=== PATIENT | male | born 1950 | race Caucasian/White ===

== ENCOUNTER 2017-11-08 09:49 | Inpatient (IN) ==
[2017-11-08] MEDS ORDERED: SODIUM CHLORIDE 0.9% 500 ML IV STA (11:24)
[2017-11-08] MEDS ORDERED: ALBUTEROL/IPRATROPIUM 3 ML NEB RESP TX STA (11:24)
[2017-11-08] MEDS ORDERED: PANTOPRAZOLE 40 MG VIAL IV STA (11:24)
[2017-11-08] MEDS ORDERED: ONDANSETRON 4 MG/2 ML VIAL IV STA (11:24)
[2017-11-08 11:31] LABS: Eosinophils # 0.5 10*3/uL (0.0-0.87); Eosinophils % 1.5 % (0.00-10.9); Hematocrit 19.7 VOL% (42.0-52.0); Hemoglobin 6.6 GM/DL (14.0-18.0); Lymphocytes # 19.9 10*3/uL (1.4-4.0); Mean Corpuscular HGB Conc 33.5 GM/DL (32-36); Mean Corpuscular Hemoglobin 30 PG (27-34); Monocytes # 10.8 10*3/uL (0.11-0.8); Monocytes % 34.2 % (1.7-12.7); Neutrophils # 0.4 10*3/uL (1.4-7.4); Neutrophils % 1.3 % (38.7-73.9); Red Blood Count 2.19 MC/CUMM (3.8-5.5); Red Cell Distribution Width 17.8 % (9.3-17.3); White Blood Count 31.6 T/CUMM (4-12)
[2017-11-08 11:35] LABS: PT Patient Result 10.7 SECS
[2017-11-08 11:40] LABS: Platelet Count 14 T/CUMM (130-400)
[2017-11-08 11:47] LABS: Alanine Aminotransferase 47 U/L (16-61); Albumin 3.1 G/DL (3.4-5.0); Alkaline Phosphatase 103 U/L (45-117); Aspartate Amino Transferase 33 U/L (0-37); Bilirubin,Total < 0.39 MG/DL (0.2-1.0); Blood Urea Nitrogen 24 MG/DL (7-18); Calcium 8.1 MG/DL (8.5-10.1); Glucose 92 MG/DL (74-106); Osmolality,Calculated 280.5 MOS/KG (273-304); Potassium 4.4 MMOL/L (3.5-5.1); Sodium 139 MMOL/L (136-145); Total Protein 6.3 G/DL (6.4-8.3); Troponin I Only < 0.015 NG/ML (0.00-0.045)
[2017-11-08 12:01] LABS: Atypical Lymphocytes Moderate; Band Neutrophils 1 % (0-10); Hypochromasia 1+; Lymphocytes 84 % (20-55); Microcytosis 1+; Nucleated Red Blood Cells 1 (0-5); Segmented Neutrophils 1 % (50-85); Total Cells Counted 100
[2017-11-08 12:04] LABS: Platelet Estimate Decreased
[2017-11-08] MEDS ORDERED: SODIUM CHLORIDE 0.9% 1,000 ML IV PRN (12:31)
[2017-11-08] MEDS ORDERED: ONDANSETRON 4 MG/2 ML VIAL ONE (12:34)
[2017-11-08] MEDS ORDERED: PANTOPRAZOLE 40 MG VIAL IV ONE (12:34)
[2017-11-08] MEDS ORDERED: SODIUM CHLORIDE 0.9% 2,650 ML IV ONE (12:35)
[2017-11-08] MEDS ORDERED: THEOPHYLLINE ER 200 MG TABLET PO SCH (13:00)
[2017-11-08] MEDS ORDERED: PIPERACILLIN/TAZOBACTAM 3,375 MG in SODIUM CHLORIDE 0.9% 100 ML IV SCH (13:00)
[2017-11-08 13:01] LABS: Alanine Aminotransferase 49 U/L (16-61); Albumin 3.1 G/DL (3.4-5.0); Alkaline Phosphatase 95 U/L (45-117); Aspartate Amino Transferase 25 U/L (0-37); Bilirubin,Direct < 0.100 MG/DL (0.0-0.20); Bilirubin,Indirect 0.3 MG/DL (0.0-1.0); Bilirubin,Total < 0.39 MG/DL (0.2-1.0); Total Protein 6.3 G/DL (6.4-8.3)
[2017-11-08 13:14] LABS: Risk Ratio 5.71; VLDL CHOLESTEROL 42.6 MG/DL
[2017-11-08 13:22] LABS: Apearance,Urine CLEAR (Clear); Bilirubin,Urine Negative (Negative); Blood, Urine Negative (Negative); Glucose,Urine (UA) Negative (Negative); Ketones,Urine Negative (Negative); Mucus,Urine Occasional /LPF (Occasional); Nitrite,Urine Negative (Negative); Protein,Urine Negative; RBC,Urine 1 /HPF (0-4); Urine Color Yellow (Yellow); Urine Specific Gravity 1.015 (1.001-1.035); Urine Urobilinogen < 2.0 EU/DL (0.2-1.0)
[2017-11-08] MEDS ORDERED: PIPERACILLIN/TAZOBACTAM 3,375 MG VIAL IV ONE (13:25)
[2017-11-08 13:26] LABS: ABG Base Excess -1.4 MMOL/L (-2.5-2.5); ABG HCO3 23.2 MMOL/L (20-26); ABG Oxygen Saturation 90.2 % (95-100); ABG PCO2 36.1 MM HG (35-48); ABG PH 7.411 (7.35-7.45); ABG PO2 65.7 MM HG (80-95)
[2017-11-08 14:06] LABS: Hepatitis A Ab IgM Quant 0.06 Index; Hepatitis A Ab IgM Result Negative (Negative); Hepatitis B Core IgM Quant 0.21 Index; Hepatitis B Core IgM Result Negative (Negative); Hepatitis B Surface Ag Quant 0.11 Index; Hepatitis B Surface Ag Result Negative (Negative); Hepatitis C Virus Ab Quant 0.04 Index; Hepatitis C Virus Ab Result Negative (Negative)
[2017-11-08] MEDS ORDERED: ALBUTEROL 2.5 MG/3 ML NEB RESP TX PRN (14:58)
[2017-11-08] MEDS: NICOTINE 21 MG/24 HR PATCH TRANSDERM SCH (18:20)
[2017-11-08] MEDS: methylPREDNISolone SOD SUC 40 MG/1 ML VIAL IV SCH ×2 (18:20→22:03)
[2017-11-08] MEDS: VANCOMYCIN INJ 1,250 MG in SODIUM CHLORIDE 0.9% 250 ML IV SCH (18:22)
[2017-11-08 18:53] LABS: Basophils # 0.1 10*3/uL (0.0-0.2); Basophils % 0.4 % (0.0-0.8); Eosinophils # 0.5 10*3/uL (0.0-0.87); Eosinophils % 1.6 % (0.00-10.9); Lymphocytes % 67.5 % (21.2-54.2); Mean Corpuscular HGB Conc 33.1 GM/DL (32-36); Mean Corpuscular Hemoglobin 31 PG (27-34); Mean Corpuscular Volume 93.3 FL (87-102); Mean Platelet Volume 9.8 FL (9.6-12.0); Monocytes # 9.7 10*3/uL (0.11-0.8); Monocytes % 29.8 % (1.7-12.7); NRBC # 0.02 10*3/uL; Neutrophils # 0.2 10*3/uL (1.4-7.4); Neutrophils % 0.7 % (38.7-73.9); Platelet Count 47 T/CUMM (130-400); Red Blood Count 1.65 MC/CUMM (3.8-5.5); White Blood Count 32.6 T/CUMM (4-12)
[2017-11-08] MEDS ORDERED: ALBUTEROL/IPRATROPIUM 3 ML NEB RESP TX PRN (18:55)
[2017-11-08 18:57] LABS: Hematocrit 15.4 VOL% (42.0-52.0); Hemoglobin 5.1 GM/DL (14.0-18.0)
[2017-11-08] MEDS: ALBUTEROL/IPRATROPIUM 3 ML NEB RESP TX SCH (18:57)
[2017-11-08 19:08] LABS: Fibrinogen Quant Value 347 MG% (200-400); Partial Thromboplastin Time 24.7 SECS (0-40)
[2017-11-08 19:16] LABS: % Iron Saturation 94.2 % (18-50)
[2017-11-08 19:29] LABS: Folate 6.9 NG/ML (5.4-24.0)
[2017-11-08 20:38] LABS: Atypical Lymphocytes Moderate; Lymphocytes 87 % (20-55); Platelet Estimate Decreased; Segmented Neutrophils 2 % (50-85); Total Cells Counted 100
[2017-11-08] MEDS: CITALOPRAM 20 MG TABLET PO SCH (21:49)
[2017-11-08] MEDS: LEVOFLOXACIN INJ 500 MG in PREMIX 1 EACH IV SCH (21:50)
[2017-11-08] MEDS: PANTOPRAZOLE 40 MG VIAL IV SCH (21:50)
[2017-11-09] MEDS: ALBUTEROL/IPRATROPIUM 3 ML NEB RESP TX SCH ×4 (00:59→20:45)
[2017-11-09 05:50] LABS: Eosinophils # 0.1 10*3/uL (0.0-0.87); Eosinophils % 0.6 % (0.00-10.9); Hematocrit 22.5 VOL% (42.0-52.0); Immature Granulocytes % 1.7 %; Immature Granulocytes Absolute 0.21 #; Lymphocytes # 7.7 10*3/uL (1.4-4.0); Lymphocytes % 61.8 % (21.2-54.2); Mean Corpuscular HGB Conc 34.2 GM/DL (32-36); Mean Corpuscular Hemoglobin 30 PG (27-34); Mean Corpuscular Volume 88.9 FL (87-102); Monocytes # 4.1 10*3/uL (0.11-0.8); Monocytes % 32.8 % (1.7-12.7); Neutrophils # 0.4 10*3/uL (1.4-7.4); Neutrophils % 3.1 % (38.7-73.9); Red Cell Distribution Width 16.3 % (9.3-17.3)
[2017-11-09 05:52] LABS: Red Blood Count 2.53 MC/CUMM (3.8-5.5); White Blood Count 12.5 T/CUMM (4-12)
[2017-11-09 05:53] LABS: Hemoglobin 7.7 GM/DL (14.0-18.0); Platelet Count 78 T/CUMM (130-400)
[2017-11-09 06:16] LABS: Atypical Lymphocytes Moderate; Band Neutrophils 3 % (0-10); Eosinophils 1 % (0-10); Hypochromasia 1+; Lymphocytes 79 % (20-55); Microcytosis Slight; Platelet Estimate Decreased; Segmented Neutrophils 1 % (50-85); Total Cells Counted 100
[2017-11-09 06:18] LABS: Albumin 3.2 G/DL (3.4-5.0); Bilirubin,Total 1.1 MG/DL (0.2-1.0); Calcium 7.8 MG/DL (8.5-10.1); Osmolality,Calculated 282.4 MOS/KG (273-304); Potassium 4.2 MMOL/L (3.5-5.1); Total Protein 6.3 G/DL (6.4-8.3)
[2017-11-09] MEDS: methylPREDNISolone SOD SUC 40 MG/1 ML VIAL IV SCH ×3 (06:30→23:07)
[2017-11-09] MEDS: VANCOMYCIN INJ 1,250 MG in SODIUM CHLORIDE 0.9% 250 ML IV SCH ×2 (06:30→18:11)
[2017-11-09] MEDS: THEOPHYLLINE 400 MG PO SCH ×2 (06:32→17:23)
[2017-11-09] MEDS: ALBUTEROL 0.4 MG/ML 30 ML/BOTTLE PO SCH ×5 (08:01→21:20)
[2017-11-09 08:54] LABS: ABG Base Excess -3.5 MMOL/L (-2.5-2.5); ABG HCO3 21.4 MMOL/L (20-26); ABG Oxygen Saturation 95.4 % (95-100); ABG PH 7.423 (7.35-7.45); ABG PO2 75.2 MM HG (80-95); ABG TCO2 18.9 MMOL/L (23-27); Allen Test Positive
[2017-11-09] MEDS: TAMSULOSIN 0.4 MG CAPSULE PO SCH (08:58)
[2017-11-09] MEDS: PANTOPRAZOLE 40 MG VIAL IV SCH ×2 (08:58→21:21)
[2017-11-09] MEDS: CETIRIZINE 10 MG TABLET PO SCH (08:58)
[2017-11-09] MEDS: NICOTINE 21 MG/24 HR PATCH TRANSDERM SCH (08:58)
[2017-11-09] MEDS ORDERED: NON-FORMULARY MEDICATION (Umeclidinium Brm/Vilanterol Tr [Anoro Ellipta] 1 PUFF) INH SCH (09:00)
[2017-11-09] MEDS: FLUTICASONE 50 MCG NASAL SPRAY 16 GM BOTTLE BOTH NARES SCH (09:03)
[2017-11-09 09:50] LABS: Hemoglobin A1 (Alkaline) 97.3 % (96.5-98.5); Hemoglobin A2 (Alkaline) 2.7 % (1.5-3.5)
[2017-11-09] MEDS: LEVOFLOXACIN INJ 500 MG in PREMIX 1 EACH IV SCH (21:21)
[2017-11-09] MEDS: CITALOPRAM 20 MG TABLET PO SCH (21:22)
[2017-11-10] MEDS: ALBUTEROL/IPRATROPIUM 3 ML NEB RESP TX SCH ×2 (00:26→07:26)
[2017-11-10 05:41] LABS: Eosinophils % 0.2 % (0.00-10.9); Hematocrit 20.9 VOL% (42.0-52.0); Immature Granulocytes % 0.3 %; Immature Granulocytes Absolute 0.03 #; Lymphocytes # 5.5 10*3/uL (1.4-4.0); Lymphocytes % 56.4 % (21.2-54.2); Mean Corpuscular HGB Conc 33.5 GM/DL (32-36); Mean Corpuscular Hemoglobin 30 PG (27-34); Mean Corpuscular Volume 89.3 FL (87-102); Mean Platelet Volume 10.3 FL (9.6-12.0); Monocytes # 3.8 10*3/uL (0.11-0.8); Monocytes % 38.8 % (1.7-12.7); Neutrophils # 0.4 10*3/uL (1.4-7.4); Neutrophils % 4.3 % (38.7-73.9); Platelet Count 51 T/CUMM (130-400); Red Blood Count 2.34 MC/CUMM (3.8-5.5); Red Cell Distribution Width 16.8 % (9.3-17.3); White Blood Count 9.8 T/CUMM (4-12)
[2017-11-10] MEDS: methylPREDNISolone SOD SUC 40 MG/1 ML VIAL IV SCH (06:07)
[2017-11-10] MEDS: VANCOMYCIN INJ 1,250 MG in SODIUM CHLORIDE 0.9% 250 ML IV SCH (06:07)
[2017-11-10] MEDS: THEOPHYLLINE 400 MG PO SCH (06:07)
[2017-11-10 06:13] LABS: Band Neutrophils 2 % (0-10); Eosinophils 2 % (0-10); Lymphocytes 75 % (20-55); Segmented Neutrophils 6 % (50-85); Total Cells Counted 100
[2017-11-10 06:14] LABS: Atypical Lymphocytes Moderate
[2017-11-10 06:15] LABS: Hypochromasia 1+; Microcytosis 1+; Platelet Estimate Decreased
[2017-11-10 06:37] LABS: Albumin 2.8 G/DL (3.4-5.0); Bilirubin,Total 0.4 MG/DL (0.2-1.0); Osmolality,Calculated 287.1 MOS/KG (273-304); Potassium 4.3 MMOL/L (3.5-5.1); Total Protein 5.9 G/DL (6.4-8.3)
[2017-11-10] MEDS ORDERED: SODIUM CHLORIDE 0.9% 1,000 ML IV PRN (07:49)
[2017-11-10] MEDS: PANTOPRAZOLE 40 MG VIAL IV SCH (08:28)
[2017-11-10] MEDS: NICOTINE 21 MG/24 HR PATCH TRANSDERM SCH (08:28)
[2017-11-10] MEDS: CETIRIZINE 10 MG TABLET PO SCH (08:28)
[2017-11-10] MEDS: TAMSULOSIN 0.4 MG CAPSULE PO SCH (08:28)
[2017-11-10] MEDS: ALBUTEROL 0.4 MG/ML 30 ML/BOTTLE PO SCH (08:29)
[2017-11-10] MEDS: FLUTICASONE 50 MCG NASAL SPRAY 16 GM BOTTLE BOTH NARES SCH (08:29)
[2017-11-10 12:27] VITALS: BP 122/60
== END 2017-11-10 12:15 | disposition hospice, home (50) | DRG 834 ==
LOC: N.ED 09:49 → N.EDINP 11:30 → N.ICU 17:47 → N.4E 11-09 17:44
PROVIDERS: ADMIT Hospitalist; ATTEND Hospitalist